=== PATIENT | male | born 1980 | race Hispanic/Latino ===

== ENCOUNTER 2024-03-18 02:35 | Emergency (ER) | payer SELFPAY ==
[~2024-03-18] VITALS: Ht 165.1 cm; Wt 68.0 kg
[2024-03-18 03:53] LABS: BASO% 0.3 % (0-3); EOS% 2.9 % (0-8); HEMATOCRIT 41.4 % (39.0-50.0); IMMATURE GRANULOCYTES 0.7 % (0.0-5.0); LYMPH% 37.9 % (15-41); MEAN CELL VOLUME 90.6 fL CALC (80.0-100.0); MEAN CORPUSCULAR HGB 30.6 pG CALC (26.0-32.0); MEAN CORPUSCULAR HGB CONC 33.8 g/dL CAL (32.0-36.0); MONO% 10.5 % (2-13); NEUT# 3.51 thou/uL (1.82-7.42); NEUT% 47.7 % (42-76); RED BLOOD COUNT 4.57 mill/uL (4.70-6.10); RED CELL DISTRI WIDTH 13.1 % (11.5-15.5)
[2024-03-18 04:10] LABS: POTASSIUM 4.2 mmol/l (3.5-5.1)
[2024-03-18 04:11] LABS: D-DIMER 0.26 mg/L (0.19-0.60)
[2024-03-18 04:12] LABS: INTERNATIONAL NORMALIZED RATIO 1.1 RATIO (0.7-1.3); PROTHROMBIN TIME 10.3 SECONDS (9.0-12.5)
[2024-03-18] MEDS ORDERED: NAPROXEN500 MG PO (04:50)
[2024-03-18] MEDS ORDERED: KETOROLAC TROMETHAMINE 30 MG/ML SDV IM ONE (04:50)
[2024-03-18 05:13] VITALS: BP 138/78
== END 2024-03-18 05:26 | disposition home or self-care (01) | DRG 556 ==
LOC: ED 02:35
PROVIDERS: Family Medicine
DX: M79.661 Pain in right lower leg (principal)